=== PATIENT | female | born 1960 | race Caucasian/White ===

== ENCOUNTER 2017-09-15 09:18 | Emergency (ER) | payer BC ==
[~2017-09-15] VITALS: Ht 154.9 cm; Wt 102.5 kg
[~2017-09-15 09:18] MED LIST: ALBU90OI6; ASPI81CH PO; BLOOD PRESSURE PILL; CEPH500 PO; Cymbalta30 MG; DIPH50 PO; HYDMOR2 PO; LOSA25; METF500; METO25ER; METPRE4DP PO; NORT10 PO; OMEP10ER PO; OMEP40CA12; ONDA8 PO; OXYC5; Pepcid40 MG PO; QVAR7.3 G1; TRIHYD253B; [UNRECOGNIZED DRUG - REMARK]
[2017-09-15] MEDS ORDERED: LEVSOD50 (09:29)
[2017-09-15] MEDS ORDERED: METF500C (09:29)
== END 2017-09-15 09:54 | disposition home or self-care (01) ==
LOC: ER 09:18
DX: S83.92XA Sprain of unspecified site of left knee, initial encounter (principal); X50.9XXA Other and unspecified overexertion or strenuous movements or postures, initial encounter; Z79.84 Long term (current) use of oral hypoglycemic drugs; Z79.899 Other long term (current) drug therapy; I10 Essential (primary) hypertension; E03.9 Hypothyroidism, unspecified
CPT/HCPCS: 99282

== ENCOUNTER 2020-07-09 00:02 | Day surgery (SDC) | payer MEDICARE, OTHER ==
[~2020-07-09 00:02] MED LIST changes: +ERGO400 PO; +EUTHYROX175 MCG; +FLUT1DIS5; +INVOKAMET; +INVOKAMET PO; +LEVSOD50; +LOSA25 PO; +METF500C; +OMEP20ER PO; +PROAIR RESPICL90 MCG
== END 2020-07-09 10:18 | disposition home or self-care (01) ==
LOC: ATC 00:02
DX: I95.1 Orthostatic hypotension (principal); E11.9 Type 2 diabetes mellitus without complications; J45.909 Unspecified asthma, uncomplicated; I10 Essential (primary) hypertension; E89.0 Postprocedural hypothyroidism; Z88.8 Allergy status to other drugs, medicaments and biological substances
CPT/HCPCS: J0834

== ENCOUNTER → 2020-08-28 | Outpatient (CLI) | payer MEDICARE, OTHER | LOC: LAB SHORT 12:42 → LAB 12:42 | DX: N60.82 Other benign mammary dysplasias of left breast (principal) | CPT/HCPCS: 87070; 87075; 87205 ==

== ENCOUNTER → 2024-05-16 | Outpatient (CLI) | payer MEDICARE, OTHER | LOC: LAB 14:00 → LAB SHORT 14:00 | DX: L08.0 Pyoderma (principal) | CPT/HCPCS: 87070; 87077; 87186; 87205 ==